=== PATIENT | female | born 1955 | race Caucasian/White ===

== ENCOUNTER → 2017-05-03 | Outpatient (CLI) | payer BC ==
[~2017-05-03] MED LIST: HYDR-757 PO; MONT10TA24; PROG100C6; TOLT4CAP13; thyroid med
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
== END ==
LOC: RAD 17:15
DX: R05 Cough (principal); R06.2 Wheezing
CPT/HCPCS: 71010

== ENCOUNTER 2017-08-10 14:35 | Emergency (ER) | payer OTHER, BC ==
[~2017-08-10] VITALS: Ht 170.2 cm; Wt 143.8 kg
[2017-08-10 15:33] LABS: BILIRUBIN,URINE NEGATIVE (NEGATIVE); CLARITY,URINE SLIGHTLY CLOUDY; COLOR,URINE YELLOW; GLUCOSE, URINE (UA) NEGATIVE (NEGATIVE); KETONES,URINE NEGATIVE (NEGATIVE); LEUKOCYTE ESTERASE ,URINE 3+ (NEGATIVE); NITRITE,URINE NEGATIVE (NEGATIVE); PH,URINE 5 (5-9); PROTEIN,URINE NEGATIVE (NEGATIVE); UROBILINOGEN,URINE NORMAL (NORMAL)
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
[2017-08-10 15:48] LABS: RBC,URINE RARE /HPF
[2017-08-10 15:49] LABS: BACTERIA,URINE LARGE /HPF; WBC,URINE >100 /HPF
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
[2017-08-10] MEDS ORDERED: CEPH-507 PO (16:08)
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
[2017-08-10 16:24] VITALS: BP 161/78
[2017-08-10] MEDS ORDERED: CYCL10TA9 PO (17:23)
[2017-08-10] MEDS ORDERED: HYDR-3812 PO (17:23)
== END 2017-08-10 16:24 | disposition home or self-care (01) ==
LOC: EDUNIT# 14:35 → ER 14:36
DX: S52.511A Displaced fracture of right radial styloid process, initial encounter for closed fracture (principal); M48.061 Spinal stenosis, lumbar region without neurogenic claudication; N39.0 Urinary tract infection, site not specified; E03.9 Hypothyroidism, unspecified; Z87.891 Personal history of nicotine dependence; V43.92XA Unspecified car occupant injured in collision with other type car in traffic accident, initial encounter
CPT/HCPCS: 72131; 72192; 73110; 81000; 87077; 87088; 87186

== ENCOUNTER → 2018-02-15 | Outpatient (CLI) | payer BC, OTHER ==
[~2018-02-15] MED LIST changes: +CEPH-507 PO; +CYCL10TA9 PO; +HYDR-3812 PO
--- NOTE | 2018-02-15 14:28 | Diagnostic Imaging Report ---
PROCEDURE: MRI left joint lower extremity without contrast. TECHNIQUE: Multiplanar, multisequence non contrast-enhanced MRI of the left lower extremity was accomplished. INDICATION: Left knee pain. No prior studies are available for comparison. Overall quality of the study is somewhat compromised due to patient large body habitus. There is a moderate-sized knee joint effusion. There is also a small Edwards's cyst. The marrow signal intensity is unremarkable. No bone contusion or geographic marrow lesion is detected. The ACL and PCL are intact. Medial and lateral collateral ligament complexes appear intact. There is some slight truncation of the posterior horn of the lateral meniscus, suspicious for a tear. No displaced fragment is seen. Medial meniscus does appear to be intact. Extensor mechanism is unremarkable. There is moderate amount of edema in the pre-patellar tendon subcutaneous tissues. There does appear to be some articular cartilage thinning of the knee compartments but no osteochondral lesion is identified. IMPRESSION: 1. Moderate knee joint effusion and small Edwards's cyst. No ligamentous tear is seen. There is some mild mild truncation of the posterior horn lateral meniscus, suspicious for a tear. No displaced meniscal fragment is detected. Dictated by: Dictated on workstation # [id number]
== END ==
LOC: RAD 08:09
PROVIDERS: ATTEND Nurse Practitioner
DX: M71.22 Synovial cyst of popliteal space [Baker], left knee (principal); M23.232 Derangement of other medial meniscus due to old tear or injury, left knee
CPT/HCPCS: 73721

== ENCOUNTER → 2018-06-27 | Outpatient (CLI) | payer BC ==
[2018-06-27 11:09] LABS: BASOPHILS % (AUTO) 0 % (0-10); EOSINOPHILS # (AUTO) 0.1 10^3/uL (0.0-0.3); EOSINOPHILS % (AUTO) 2 % (0-10); HEMATOCRIT 40 % (35-52); HEMOGLOBIN 13.1 G/DL (11.5-16.0); LYMPHOCYTES # (AUTO) 1.8 X 10^3 (1.0-4.0); LYMPHOCYTES % (AUTO) 24 % (12-44); MEAN CORPUSCULAR HEMOGLOBIN 27 PG (25-34); MEAN CORPUSCULAR HGB CONC 33 G/DL (32-36); MEAN CORPUSCULAR VOLUME 82 FL (80-99); MEAN PLATELET VOLUME 8.6 FL (7.4-10.4); MONOCYTES # (AUTO) 0.6 X 10^3 (0.0-1.0); MONOCYTES % (AUTO) 8 % (0-12); NEUTROPHILS # (AUTO) 4.9 X 10^3 (1.8-7.8); NEUTROPHILS % (AUTO) 66 % (42-75); PLATELET COUNT 284 10^3/uL (130-400); RED BLOOD COUNT 4.86 10^6/uL (4.35-5.85); WHITE BLOOD COUNT 7.4 10^3/uL (4.3-11.0)
[2018-06-27 11:32] LABS: ALANINE AMINOTRANSFERASE 20 U/L (0-55); ALBUMIN 4.2 GM/DL (3.2-4.5); ALKALINE PHOSPHATASE 86 U/L (40-136); BILIRUBIN,TOTAL 0.4 MG/DL (0.1-1.0); BUN/CREATININE RATIO 17; CALCIUM 9.7 MG/DL (8.5-10.1); CARBON DIOXIDE 27 MMOL/L (21-32); CHLORIDE 103 MMOL/L (98-107); CREATININE SERUM 0.82 MG/DL (0.60-1.30); GFR ESTIMATED > 60; GLUCOSE 125 MG/DL (70-105); POTASSIUM 4.3 MMOL/L (3.6-5.0); SODIUM 142 MMOL/L (135-145); TOTAL PROTEIN 7.2 GM/DL (6.4-8.2)
== END ==
LOC: LAB 10:49
PROVIDERS: ATTEND Surgery
DX: I70.243 Atherosclerosis of native arteries of left leg with ulceration of ankle (principal); L97.322 Non-pressure chronic ulcer of left ankle with fat layer exposed
CPT/HCPCS: 36415; 80053; 85025

== ENCOUNTER → 2018-06-27 | Outpatient (CLI) | payer BC | LOC: WOUNDCARE 08:23 | PROVIDERS: ATTEND Surgery | DX: I87.332 Chronic venous hypertension (idiopathic) with ulcer and inflammation of left lower extremity (principal); L97.322 Non-pressure chronic ulcer of left ankle with fat layer exposed; I82.402 Acute embolism and thrombosis of unspecified deep veins of left lower extremity; E66.01 Morbid (severe) obesity due to excess calories; Z68.43 Body mass index [BMI] 50.0-59.9, adult | CPT/HCPCS: 11042 ==

== ENCOUNTER → 2018-06-29 | Outpatient (CLI) | payer BC | LOC: WOUNDCARE 15:13 | PROVIDERS: ATTEND Surgery | DX: I87.332 Chronic venous hypertension (idiopathic) with ulcer and inflammation of left lower extremity (principal); L97.322 Non-pressure chronic ulcer of left ankle with fat layer exposed; I82.402 Acute embolism and thrombosis of unspecified deep veins of left lower extremity; E66.01 Morbid (severe) obesity due to excess calories; Z68.43 Body mass index [BMI] 50.0-59.9, adult | CPT/HCPCS: 29581 ==

== ENCOUNTER → 2018-07-04 | Outpatient (CLI) | payer BC | LOC: WOUNDCARE 08:12 | PROVIDERS: ATTEND Surgery | DX: I87.332 Chronic venous hypertension (idiopathic) with ulcer and inflammation of left lower extremity (principal); L97.322 Non-pressure chronic ulcer of left ankle with fat layer exposed; I82.402 Acute embolism and thrombosis of unspecified deep veins of left lower extremity; E66.01 Morbid (severe) obesity due to excess calories; Z68.43 Body mass index [BMI] 50.0-59.9, adult | CPT/HCPCS: 99213 ==

== ENCOUNTER → 2018-07-11 | Outpatient (CLI) | payer BC | LOC: WOUNDCARE 08:06 | PROVIDERS: ATTEND Surgery | DX: L97.322 Non-pressure chronic ulcer of left ankle with fat layer exposed (principal); I87.332 Chronic venous hypertension (idiopathic) with ulcer and inflammation of left lower extremity; I82.402 Acute embolism and thrombosis of unspecified deep veins of left lower extremity; E66.01 Morbid (severe) obesity due to excess calories; Z68.43 Body mass index [BMI] 50.0-59.9, adult | CPT/HCPCS: 11042; 87070; 87075; 87205 ==

== ENCOUNTER → 2018-07-18 | Outpatient (CLI) | payer BC | LOC: WOUNDCARE 08:13 | PROVIDERS: ATTEND Surgery | DX: I87.332 Chronic venous hypertension (idiopathic) with ulcer and inflammation of left lower extremity (principal); L97.322 Non-pressure chronic ulcer of left ankle with fat layer exposed; I82.402 Acute embolism and thrombosis of unspecified deep veins of left lower extremity; E66.01 Morbid (severe) obesity due to excess calories; Z68.43 Body mass index [BMI] 50.0-59.9, adult | CPT/HCPCS: 11042 ==

== ENCOUNTER → 2018-07-25 | Outpatient (CLI) | payer BC | LOC: WOUNDCARE 08:15 | PROVIDERS: ATTEND Surgery | DX: I87.332 Chronic venous hypertension (idiopathic) with ulcer and inflammation of left lower extremity (principal); L97.322 Non-pressure chronic ulcer of left ankle with fat layer exposed; E66.01 Morbid (severe) obesity due to excess calories; Z68.43 Body mass index [BMI] 50.0-59.9, adult | CPT/HCPCS: 11042 ==

== ENCOUNTER → 2018-08-01 | Outpatient (CLI) | payer BC | LOC: WOUNDCARE 08:08 | PROVIDERS: ATTEND Surgery | DX: I87.332 Chronic venous hypertension (idiopathic) with ulcer and inflammation of left lower extremity (principal); L97.322 Non-pressure chronic ulcer of left ankle with fat layer exposed; E66.01 Morbid (severe) obesity due to excess calories; Z68.43 Body mass index [BMI] 50.0-59.9, adult | CPT/HCPCS: 99212 ==

== ENCOUNTER 2018-10-20 17:12 | Emergency (ER) | payer BC ==
[~2018-10-20] VITALS: Ht 170.2 cm; Wt 147.9 kg
[2018-10-20 17:49] LABS: BASOPHILS % (AUTO) 0 % (0-10); EOSINOPHILS # (AUTO) 0.2 10^3/uL (0.0-0.3); EOSINOPHILS % (AUTO) 2 % (0-10); HEMATOCRIT 39 % (35-52); HEMOGLOBIN 12.7 G/DL (11.5-16.0); LYMPHOCYTES # (AUTO) 2.2 X 10^3 (1.0-4.0); LYMPHOCYTES % (AUTO) 33 % (12-44); MEAN CORPUSCULAR HEMOGLOBIN 27 PG (25-34); MEAN CORPUSCULAR HGB CONC 33 G/DL (32-36); MEAN CORPUSCULAR VOLUME 81 FL (80-99); MEAN PLATELET VOLUME 8.7 FL (7.4-10.4); MONOCYTES # (AUTO) 0.7 X 10^3 (0.0-1.0); MONOCYTES % (AUTO) 10 % (0-12); NEUTROPHILS # (AUTO) 3.7 X 10^3 (1.8-7.8); NEUTROPHILS % (AUTO) 55 % (42-75); PLATELET COUNT 262 10^3/uL (130-400); RED CELL DISTRIBUTION WIDTH 14.7 % (10.0-14.5); WHITE BLOOD COUNT 6.8 10^3/uL (4.3-11.0)
[2018-10-20 18:00] LABS: FIBRIN DEGRADATION PRODUCTS 0.61 UG/ML (0.00-0.49); PROTHROMBIN TIME PATIENT 13.2 SEC (12.2-14.7)
[2018-10-20 18:04] LABS: ALANINE AMINOTRANSFERASE 25 U/L (0-55); ALBUMIN 4.6 GM/DL (3.2-4.5); ALKALINE PHOSPHATASE 94 U/L (40-136); BILIRUBIN,TOTAL 0.6 MG/DL (0.1-1.0); BUN/CREATININE RATIO 14; CALCIUM 9.9 MG/DL (8.5-10.1); CARBON DIOXIDE 28 MMOL/L (21-32); CHLORIDE 102 MMOL/L (98-107); CREATININE SERUM 0.83 MG/DL (0.60-1.30); GFR ESTIMATED > 60; GLUCOSE 106 MG/DL (70-105); POTASSIUM 3.8 MMOL/L (3.6-5.0); SODIUM 141 MMOL/L (135-145); TOTAL PROTEIN 7.7 GM/DL (6.4-8.2)
--- NOTE | 2018-10-20 18:09 | ED Lower Extremity ---
General Chief Complaint: Lower Extremity Stated Complaint: PAIN IN L LEG Nursing Triage Note: LEFT LOWER LEG PAIN X2 DAYS. HISTORY OF DVT AND CELLULITUS Nursing Sepsis Screen: No Definite Risk Source: patient Exam Limitations: no limitations History of Present Illness Date Seen by Provider: October 20, 2018 Time Seen by Provider: 17:20 Initial Comments 62-year-old female who presents to the emergency room with complaints of left calf pain and redness for the past 2 days. 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 She is currently on blood thinners. Denies injury to the calf area. Pain/Injury Location: left leg (Calf area) Method of Injury: unknown Modifying Factors: Worse With Movement Allergies and Home Medications Allergies Coded Allergies: No Known Drug Allergies (Unverified , 08/24/14) Home Medications Cephalexin 500 Mg Capsule, 500 MG PO QID Prescribed by: YVAN KELLOGG on 08/10/17 1608 Cephalexin 500 Mg Capsule, 500 MG PO QID Prescribed by: CARYN MARIE on 10/20/18 1902 Cyclobenzaprine HCl 10 Mg Tablet, 10 MG PO TID PRN for SPASMS Prescribed by: YVAN KELLOGG on 08/10/17 1723 Hydrocodone Bit/Acetaminophen 1 Each Tablet, 1 EA PO Q6H PRN for MILD PAIN Prescribed by: SHANTANU WAYNE on 08/24/14 2228 Hydrocodone/Acetaminophen 1 Each Tablet, 1 EACH PO Q4H PRN for PAIN-MODERATE TO SEVERE Prescribed by: YVAN KELLOGG on 08/10/17 1723 Patient Home Medication List Home Medication List Reviewed: Yes Review of Systems Constitutional: see HPI; No chills, No fever Musculoskeletal: see HPI, other (Left calf pain) Skin: see HPI, other (Area of erythema to the left calf) All Other Systems Reviewed Negative Unless Noted: Yes Past Vnlmftl-Hitbhy-Rndvtj Hx Past Med/Social Hx: Reviewed Nursing Past Med/Soc Hx Patient Social History Alcohol Use: Denies Use Recreational Drug Use: No Type Used: Cigarettes Former Smoker, Quit: Jul 15, 1989 Recent Foreign Travel: No Contact w/Someone Who Travel: No Recent Infectious Disease Expo: No Recent Hopitalizations: No Seasonal Allergies Seasonal Allergies: Yes Past Medical History Surgeries: Yes (dental) Respiratory: No Cardiac: No Neurological: No 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 oz. 147.591541zd; 49.64 BMI Method:Stated General Appearance: WD/WN, no apparent distress Cardiovascular: normal peripheral pulses, regular rate, rhythm, no edema, no gallop, no JVD, no murmur Respiratory: chest non-tender, lungs clear, normal breath sounds, no respiratory distress, no accessory muscle use Legs: left leg pain (Left calf area) Neurologic/Psychiatric: alert, normal mood/affect, oriented x 3 Skin: normal color, warm/dry, other (Area of erythema to the left calf 4 cm in diameter. Warm to the touch. Tender on palpation.) Progress/Results/Core Measures Results/Orders Lab Results Laboratory Tests Test 10/20/18 17:39 Range/Units White Blood Count 6.8 4.3-11.0 10^3/uL Red Blood Count 4.79 4.35-5.85 10^6/uL Hemoglobin 12.7 11.5-16.0 G/DL Hematocrit 39 35-52 % Mean Corpuscular Volume 81 80-99 FL Mean Corpuscular Hemoglobin 27 25-34 PG Mean Corpuscular Hemoglobin Concent 33 32-36 G/DL Red Cell Distribution Width 14.7 H 10.0-14.5 % Platelet Count 262 130-400 10^3/uL Mean Platelet Volume 8.7 7.4-10.4 FL Neutrophils (%) (Auto) 55 42-75 % Lymphocytes (%) (Auto) 33 12-44 % Monocytes (%) (Auto) 10 0-12 % Eosinophils (%) (Auto) 2 0-10 % Basophils (%) (Auto) 0 0-10 % Neutrophils # (Auto) 3.7 1.8-7.8 X 10^3 Lymphocytes # (Auto) 2.2 1.0-4.0 X 10^3 Monocytes # (Auto) 0.7 0.0-1.0 X 10^3 Eosinophils # (Auto) 0.2 0.0-0.3 10^3/uL Basophils # (Auto) 0.0 0.0-0.1 10^3/uL Prothrombin Time 13.2 12.2-14.7 SEC INR Comment 1.0 0.8-1.4 Activated Partial Thromboplast Time 32 24-35 SEC D-Dimer 0.61 H 0.00-0.49 UG/ML Sodium Level 141 135-145 MMOL/L Potassium Level 3.8 3.6-5.0 MMOL/L Chloride Level 102 98-107 MMOL/L Carbon Dioxide Level 28 21-32 MMOL/L Anion Gap 11 5-14 MMOL/L Blood Urea Nitrogen 12 7-18 MG/DL Creatinine 0.83 0.60-1.30 MG/DL Estimat Glomerular Filtration Rate > 60 BUN/Creatinine Ratio 14 Glucose Level 106 H 70-105 MG/DL Calcium Level 9.9 8.5-10.1 MG/DL Corrected Calcium 8.5-10.1 MG/DL Total Bilirubin 0.6 0.1-1.0 MG/DL Aspartate Amino Transf (AST/SGOT) 18 5-34 U/L Alanine Aminotransferase (ALT/SGPT) 25 0-55 U/L Alkaline Phosphatase 94 40-136 U/L Total Protein 7.7 6.4-8.2 GM/DL Albumin 4.6 H 3.2-4.5 GM/DL My Orders Orders - CARYN MARIE Comprehensive Metabolic Panel (10/20/18 17:23) Cbc With Automated Diff (10/20/18 17:23) Protime With Inr (10/20/18 17:23) Partial Thromboplastin Time (10/20/18 17:23) Fibrin Degradation Products (10/20/18 17:23) Us Venous Lower Ext Lt (10/20/18 17:23) Monitor-Rhythm Ecg Trace Only (10/20/18 17:23) Vital Signs/I&O 10/20/18 10/20/18 17:17 19:05 Temp 97.8 97.8 Pulse 84 75 Resp 16 B/P (MAP) 168/88 (114) 181/71 (107) Pulse Ox 100 100 O2 Delivery Room Air Room Air Blood Pressure Mean: 114 Diagnostic Imaging Diagonstic Imaging: Ultrasound Plain Films/CT/US/NM/MRI: leg Comments NAME: ELIZABETH APARICIO [facility] REC#: [id number] PT STATUS: DEP ER : 1955 PHYSICIAN: CARYN MARIE ADMIT DATE: 10/20/18/ER Signed Date of Exam: 10/20/18 US VENOUS LOWER EXT LT PROCEDURE: US left lower extremity venous. TECHNIQUE: Multiple real-time grayscale images were obtained over the left lower extremity in various projections. Additional duplex Doppler and color Doppler images were also obtained. INDICATION: Pain and swelling COMPARISON: 06/17/2018 FINDINGS: Normal flow, compression, and augmentation within the visualized deep venous structures of the left lower extremity. IMPRESSION: No evidence of deep venous thrombosis within the left lower extremity. Dictated by: Dictated on workstation # [id number] Dict: 10/20/181839 Trans: 10/20/181924 Interpreted by: BRANNON DE LOS SANTOS MD Electronically signed by: BRANNON DE LOS SANTOS MD 10/20/181924 Reviewed: Reviewed by Me Departure Impression Primary Impression: Cellulitis Disposition: 01 HOME, SELF-CARE Condition: Stable/Unchanged Departure-Patient Inst. Decision time for Depature: 19:01 Referrals: ARLET GARY MD (PCP/Family) Primary Care Physician Patient Instructions: Cellulitis (Skin Infection), Adult (DC) Add. Discharge Instructions: Take medications as directed. Follow-up with Dr. Gary within 1 week for recheck. Return back to the emergency room for worsening symptoms turns as needed. All discharge instructions reviewed with patient and/or family. Voiced understanding. Scripts Cephalexin (Keflex) 500 Mg Capsule 500 MG PO QID for 7 Days, #28 CAP Prov: CARYN MARIE 10/20/18 CARYN MARIE October 20, 2018 18:09
--- NOTE | 2018-10-20 18:51 | Diagnostic Imaging Report ---
PROCEDURE: US left lower extremity venous. TECHNIQUE: Multiple real-time grayscale images were obtained over the left lower extremity in various projections. Additional duplex Doppler and color Doppler images were also obtained. INDICATION: Pain and swelling COMPARISON: 06/17/2018 FINDINGS: Normal flow, compression, and augmentation within the visualized deep venous structures of the left lower extremity. IMPRESSION: No evidence of deep venous thrombosis within the left lower extremity. Dictated by: Dictated on workstation # [id number]
--- NOTE | 2018-10-20 18:56 | NUR ---
Report given to Bryon
[2018-10-20] MEDS ORDERED: CEPH-507 PO (19:02)
[2018-10-20 19:05] VITALS: BP 181/71
== END 2018-10-20 19:07 | disposition home or self-care (01) ==
LOC: EDUNIT# 17:12 → ER 17:13
DX: L03.116 Cellulitis of left lower limb (principal); E03.9 Hypothyroidism, unspecified; Z86.718 Personal history of other venous thrombosis and embolism; Z87.891 Personal history of nicotine dependence
CPT/HCPCS: 36415; 80053; 85025; 85379; 85610; 85730; 93041

== ENCOUNTER 2019-01-27 13:01 | Outpatient (CLI) | payer BC ==
[~2019-01-27] VITALS: Ht 170.2 cm; Wt 152.4 kg
[2019-01-27] MEDS ORDERED: TOLT4CAP13 PO (13:19)
[2019-01-27] MEDS ORDERED: LEVO100T7 PO (13:19)
[2019-01-27] MEDS ORDERED: MONT10TA24 PO (13:19)
[2019-01-27] MEDS ORDERED: CETI10TA20 PO (13:19)
[2019-01-27] MEDS ORDERED: CHOL500044 PO (13:19)
[2019-01-27] MEDS ORDERED: PROG100C11 PO (13:19)
== END 2019-01-27 13:20 | disposition home or self-care (01) ==
LOC: PREOP 13:01
PROVIDERS: ATTEND Surgery
DX: Z01.818 Encounter for other preprocedural examination (principal); K62.5 Hemorrhage of anus and rectum

== ENCOUNTER 2019-01-31 13:24 | Day surgery (SDC) | payer BC ==
[2019-01-31] VITALS (8 sets, daily range): BP systolic 122–176; BP diastolic 73–81
[~2019-01-31] VITALS: Ht 170.2 cm; Wt 152.4 kg
[~2019-01-31 13:24] MED LIST changes: +CETI10TA20 PO; +CHOL500044 PO; +LACTATED RINGERS 1,000 ML IV ONE; +LEVO100T7 PO; +MONT10TA24 PO; +PROG100C11 PO; +TOLT4CAP13 PO
[2019-01-31] MEDS ORDERED: LACTATED RINGERS 1,000 ML IV STA (13:31)
[2019-01-31] MEDS ORDERED: proPOfol 200 MG/20 ML (DIPRIVAN) VIAL IV ONE ×3 (13:36→14:32)
[2019-01-31] MEDS ORDERED: MIDAZOLAM 2 MG/2 ML (VERSED) VIAL ONE (13:36)
[2019-01-31] MEDS ORDERED: LIDOCAINE PF 2% 5 ML (XYLOCAINE) VIAL ONE (13:36)
--- NOTE | 2019-01-31 13:49 | Progress Note-Pre Operative ---
Pre-Operative Progress Note H&P Reviewed The H&P was reviewed, patient examined and no changes noted. Date Seen by Provider: Jan 31, 2019 Time Seen by Provider: 13:48 Date H&P Reviewed: Jan 31, 2019 Time H&P Reviewed: 13:48 Pre-Operative Diagnosis: bright red blood per rectum ALEX HOBBS DO Jan 31, 2019 13:49
--- NOTE | 2019-01-31 14:46 | Progress Note-Post Operative ---
Post-Operative Progess Note Surgeon (s)/Domestic Housekeeper (s) Surgeon ALEX HOBBS DO Domestic Housekeeper: na Pre-Operative Diagnosis bright red blood per rectum Post-Operative Diagnosis colon polyps Procedure & Operative Findings Date of Procedure 01/31/19 Procedure Performed/Findings colonoscopy c snare polypectomy x 4 Anesthesia Type per mda Estimated Blood Loss Estimated blood loss (mL): none Specimens/Packing Specimens Removed colon polyps ALEX HOBBS DO Jan 31, 2019 14:46
--- NOTE | 2019-01-31 14:47 | Discharge Inst-Simple/Standard ---
Discharge Inst-Standard Patient Instructions/Follow Up Plan of Care/Instructions/FU: 2-3 weeks Anay Activity as Tolerated: Yes Discharge Diet: Regular Diet ALEX HOBBS DO Jan 31, 2019 14:47
--- NOTE | 2019-01-31 15:01 | Anesthesia-General Post-Op ---
MAC Patient Condition Mental Status/LOC: Same as Preop Cardiovascular: Satisfactory Nausea/Vomiting: Absent Respiratory: Satisfactory Pain: Controlled Complications: Absent Post Op Complications Complications None Follow Up Care/Instructions Patient Instructions None needed. Anesthesiology Discharge Order Discharge Order Patient is doing well, no complaints, stable vital signs, no apparent adverse anesthesia problems. ANA MARIA LINDSEY DO Jan 31, 2019 15:01
--- NOTE | 2019-01-31 19:14 | OPERATIVE REPORT ---
DATE OF SERVICE: 01/31/2019 PREOPERATIVE DIAGNOSIS: Bright red blood per rectum. POSTOPERATIVE DIAGNOSIS: Colon polyps. PROCEDURE PERFORMED: Colonoscopy with snare polypectomy x4. SURGEON: Alex Cueva DO ANESTHESIA: Per MDA. ESTIMATED BLOOD LOSS: None. COMPLICATIONS: None. INDICATIONS: The patient is a 63-year-old female who has been having some bright red bleeding per rectum. She is due for colonoscopy. She understands risks and benefits and wished to proceed with procedure. Consent was signed in the chart. DESCRIPTION OF PROCEDURE: The patient was taken to the endoscopy suite, placed in left lateral recumbent position. Timeout was performed. Digital rectal exam was performed. Feels like healing anal fissure. No other palpable polyps, mass or ulcerations. The scope was inserted in the rectum, advanced all the way to the cecum with minimal difficulty. Prep was adequate. Scope was then slowly retracted back. There were no polyps, masses or ulcerations within the cecum. Ascending colon had no polyps, masses or ulcerations. In the hepatic flexure, there were two larger polyps, which snare polypectomy was performed. One was able to be suctioned out and had to be withdrawn the entire way. The scope was then reinserted in the rectum, advanced all the way back up to the hepatic flexure and then slowly withdrawn. There were no polyps, masses or ulcerations in the transverse colon. In the descending colon, there were 2 small polyps, which snare polypectomies were performed. Scope was continued to be slowly retracted back. No polyps, masses or ulcerations in the sigmoid colon. In the rectum, the scope was retroflexed noting no other pathology. Scope was returned to its normal position, slowly withdrawn until completely removed. The patient tolerated procedure well without any complications. She was taken to recovery room in stable condition. RECOMMENDATIONS: Would be to repeat colonoscopy in one year for reevaluation. If she has any problems prior to that, she should be reevaluated at that time. The patient will follow up in 2 weeks to discuss pathology results. Job ID: [id number] DocumentID: [id number] Dictated Date: 01/31/2019 14:50:00 Assistant Customer Service Manager Date: 01/31/2019 19:13:45 Dictated By: ALEX CUEVA DO
== END 2019-01-31 15:40 | disposition home or self-care (01) ==
LOC: ENDO 13:24
PROVIDERS: ATTEND Surgery
DX: D12.4 Benign neoplasm of descending colon (principal); D12.3 Benign neoplasm of transverse colon; K62.5 Hemorrhage of anus and rectum; K58.9 Irritable bowel syndrome, unspecified; E66.01 Morbid (severe) obesity due to excess calories; Z68.43 Body mass index [BMI] 50.0-59.9, adult; Z87.891 Personal history of nicotine dependence; Z83.6 Family history of other diseases of the respiratory system; Z84.1 Family history of disorders of kidney and ureter; Z83.49 Family history of other endocrine, nutritional and metabolic diseases; Z82.49 Family history of ischemic heart disease and other diseases of the circulatory system; Z80.9 Family history of malignant neoplasm, unspecified; Z82.3 Family history of stroke

== ENCOUNTER → 2020-04-11 | Outpatient (CLI) | payer BC ==
[~2020-04-11] MED LIST changes: +ACHD5005 PO; -CETI10TA20 PO; +CETI10TA49 PO; -HYDR-3812 PO; -LACTATED RINGERS 1,000 ML IV ONE; -MONT10TA24 PO; +MONT10TA26 PO
== END ==
LOC: LABNPT 05:45
PROVIDERS: ATTEND Family Medicine
DX: R50.81 Fever presenting with conditions classified elsewhere (principal); Z20.828 Contact with and (suspected) exposure to other viral communicable diseases
CPT/HCPCS: 87635

== ENCOUNTER → 2020-07-30 | Outpatient (CLI) | payer BC ==
[~2020-07-30] MED LIST changes: -MONT10TA26 PO; +MONT10TA32 PO
== END ==
LOC: LABNPT 08:44
PROVIDERS: ATTEND Family Medicine
DX: R50.9 Fever, unspecified (principal); Z20.822 Contact with and (suspected) exposure to COVID-19
CPT/HCPCS: 87635

== ENCOUNTER 2020-10-02 14:43 | Outpatient (RCR) | payer BC | END 2020-10-03 09:35 | disposition home or self-care (01) | PROVIDERS: ATTEND Phlebology | DX: I89.0 Lymphedema, not elsewhere classified (principal); L03.90 Cellulitis, unspecified; E03.9 Hypothyroidism, unspecified; Z86.718 Personal history of other venous thrombosis and embolism ==

== ENCOUNTER → 2021-01-10 | Outpatient (CLI) | payer BC ==
[~2021-01-10] MED LIST changes: -TOLT4CAP13 PO; +TOLT4CAP26 PO
== END ==
LOC: LABNPT 08:56
PROVIDERS: ATTEND Family Medicine
DX: Z20.822 Contact with and (suspected) exposure to COVID-19 (principal)
CPT/HCPCS: 87635

== ENCOUNTER → 2021-05-14 | Outpatient (CLI) | payer BC ==
[~2021-05-14] MED LIST changes: +CYCL10TA25 PO; -CYCL10TA9 PO; +MONT-40 PO; -MONT10TA32 PO
== END ==
LOC: WOUNDCARE 08:51
PROVIDERS: ATTEND Family Medicine
DX: I87.333 Chronic venous hypertension (idiopathic) with ulcer and inflammation of bilateral lower extremity (principal); L97.522 Non-pressure chronic ulcer of other part of left foot with fat layer exposed; L97.512 Non-pressure chronic ulcer of other part of right foot with fat layer exposed; L03.115 Cellulitis of right lower limb; L03.116 Cellulitis of left lower limb; I89.0 Lymphedema, not elsewhere classified; I96 Gangrene, not elsewhere classified; Z86.718 Personal history of other venous thrombosis and embolism
CPT/HCPCS: A6197; G0463; 99214

== ENCOUNTER → 2021-05-21 | Outpatient (CLI) | payer BC | LOC: WOUNDCARE 10:10 | PROVIDERS: ATTEND Family Medicine | DX: I87.333 Chronic venous hypertension (idiopathic) with ulcer and inflammation of bilateral lower extremity (principal); L97.522 Non-pressure chronic ulcer of other part of left foot with fat layer exposed; L97.512 Non-pressure chronic ulcer of other part of right foot with fat layer exposed; L03.115 Cellulitis of right lower limb; L03.116 Cellulitis of left lower limb; I89.0 Lymphedema, not elsewhere classified; I96 Gangrene, not elsewhere classified; Z86.718 Personal history of other venous thrombosis and embolism | CPT/HCPCS: 11042; G0463 ==

== ENCOUNTER → 2021-05-27 | Outpatient (CLI) | payer BC | LOC: WOUNDCARE 14:56 | PROVIDERS: ATTEND Family Medicine | DX: I87.333 Chronic venous hypertension (idiopathic) with ulcer and inflammation of bilateral lower extremity (principal); L97.512 Non-pressure chronic ulcer of other part of right foot with fat layer exposed; L97.522 Non-pressure chronic ulcer of other part of left foot with fat layer exposed; L03.116 Cellulitis of left lower limb; L03.115 Cellulitis of right lower limb; I89.0 Lymphedema, not elsewhere classified; G90.09 Other idiopathic peripheral autonomic neuropathy; I96 Gangrene, not elsewhere classified | CPT/HCPCS: 11042; A6197; G0463 ==

== ENCOUNTER → 2021-06-03 | Outpatient (CLI) | payer BC | LOC: WOUNDCARE 13:51 | PROVIDERS: ATTEND Family Medicine | DX: I87.333 Chronic venous hypertension (idiopathic) with ulcer and inflammation of bilateral lower extremity (principal); I96 Gangrene, not elsewhere classified; L97.512 Non-pressure chronic ulcer of other part of right foot with fat layer exposed; L97.522 Non-pressure chronic ulcer of other part of left foot with fat layer exposed; L03.116 Cellulitis of left lower limb; L03.115 Cellulitis of right lower limb; I89.0 Lymphedema, not elsewhere classified; G90.09 Other idiopathic peripheral autonomic neuropathy; Z86.718 Personal history of other venous thrombosis and embolism | CPT/HCPCS: 11042; G0463 ==

== ENCOUNTER → 2021-06-10 | Outpatient (CLI) | payer BC | LOC: WOUNDCARE 13:38 | PROVIDERS: ATTEND Family Medicine | DX: I87.333 Chronic venous hypertension (idiopathic) with ulcer and inflammation of bilateral lower extremity (principal); L97.522 Non-pressure chronic ulcer of other part of left foot with fat layer exposed; L97.512 Non-pressure chronic ulcer of other part of right foot with fat layer exposed; I89.0 Lymphedema, not elsewhere classified; G90.09 Other idiopathic peripheral autonomic neuropathy; I96 Gangrene, not elsewhere classified; Z86.718 Personal history of other venous thrombosis and embolism | CPT/HCPCS: 11042; G0463 ==

== ENCOUNTER → 2021-06-17 | Outpatient (CLI) | payer BC | LOC: WOUNDCARE 13:50 | PROVIDERS: ATTEND Family Medicine | DX: I87.332 Chronic venous hypertension (idiopathic) with ulcer and inflammation of left lower extremity (principal); L97.512 Non-pressure chronic ulcer of other part of right foot with fat layer exposed; L97.522 Non-pressure chronic ulcer of other part of left foot with fat layer exposed; I96 Gangrene, not elsewhere classified; I89.0 Lymphedema, not elsewhere classified; G90.09 Other idiopathic peripheral autonomic neuropathy; Z86.718 Personal history of other venous thrombosis and embolism | CPT/HCPCS: 11042; G0463 ==

== ENCOUNTER → 2021-06-24 | Outpatient (CLI) | payer BC | LOC: WOUNDCARE 13:48 | PROVIDERS: ATTEND Family Medicine | DX: I87.333 Chronic venous hypertension (idiopathic) with ulcer and inflammation of bilateral lower extremity (principal); L97.522 Non-pressure chronic ulcer of other part of left foot with fat layer exposed; L97.512 Non-pressure chronic ulcer of other part of right foot with fat layer exposed; I89.0 Lymphedema, not elsewhere classified; G90.09 Other idiopathic peripheral autonomic neuropathy; I96 Gangrene, not elsewhere classified; Z86.718 Personal history of other venous thrombosis and embolism | CPT/HCPCS: 11042; G0463 ==

== ENCOUNTER → 2021-07-01 | Outpatient (CLI) | payer BC | LOC: WOUNDCARE 13:40 | PROVIDERS: ATTEND Family Medicine | DX: I87.333 Chronic venous hypertension (idiopathic) with ulcer and inflammation of bilateral lower extremity (principal); L97.512 Non-pressure chronic ulcer of other part of right foot with fat layer exposed; L97.522 Non-pressure chronic ulcer of other part of left foot with fat layer exposed; I89.0 Lymphedema, not elsewhere classified; G90.09 Other idiopathic peripheral autonomic neuropathy; I96 Gangrene, not elsewhere classified | CPT/HCPCS: 11042; G0463 ==

== ENCOUNTER → 2021-07-03 | Outpatient (CLI) | payer BC | LOC: WOUNDCARE 13:38 | PROVIDERS: ATTEND Family Medicine | DX: I87.333 Chronic venous hypertension (idiopathic) with ulcer and inflammation of bilateral lower extremity (principal); I89.0 Lymphedema, not elsewhere classified | CPT/HCPCS: 29581; A6021; G0463 ==

== ENCOUNTER → 2021-07-04 | Outpatient (CLI) | payer BC | LOC: WOUNDCARE 11:04 | PROVIDERS: ATTEND Family Medicine | DX: I87.333 Chronic venous hypertension (idiopathic) with ulcer and inflammation of bilateral lower extremity (principal); I89.0 Lymphedema, not elsewhere classified; I96 Gangrene, not elsewhere classified | CPT/HCPCS: 29581; G0463 ==

== ENCOUNTER → 2021-07-08 | Outpatient (CLI) | payer BC | LOC: WOUNDCARE 13:56 | PROVIDERS: ATTEND Family Medicine | DX: I87.333 Chronic venous hypertension (idiopathic) with ulcer and inflammation of bilateral lower extremity (principal); L97.522 Non-pressure chronic ulcer of other part of left foot with fat layer exposed; L97.512 Non-pressure chronic ulcer of other part of right foot with fat layer exposed; I89.0 Lymphedema, not elsewhere classified; G90.09 Other idiopathic peripheral autonomic neuropathy; L03.115 Cellulitis of right lower limb; L03.116 Cellulitis of left lower limb; I96 Gangrene, not elsewhere classified; Z86.718 Personal history of other venous thrombosis and embolism | CPT/HCPCS: 11042; A6021; G0463 ==

== ENCOUNTER → 2021-07-10 | Outpatient (CLI) | payer BC | LOC: WOUNDCARE 13:09 | PROVIDERS: ATTEND Family Medicine | DX: I87.333 Chronic venous hypertension (idiopathic) with ulcer and inflammation of bilateral lower extremity (principal); I89.0 Lymphedema, not elsewhere classified; I96 Gangrene, not elsewhere classified | CPT/HCPCS: 29581; G0463 ==

== ENCOUNTER → 2021-07-15 | Outpatient (CLI) | payer BC | LOC: WOUNDCARE 13:52 | PROVIDERS: ATTEND Family Medicine | DX: I87.333 Chronic venous hypertension (idiopathic) with ulcer and inflammation of bilateral lower extremity (principal); L97.522 Non-pressure chronic ulcer of other part of left foot with fat layer exposed; L97.512 Non-pressure chronic ulcer of other part of right foot with fat layer exposed; I89.0 Lymphedema, not elsewhere classified; G90.09 Other idiopathic peripheral autonomic neuropathy; I96 Gangrene, not elsewhere classified; Z86.718 Personal history of other venous thrombosis and embolism | CPT/HCPCS: 11042; G0463 ==

== ENCOUNTER → 2021-07-22 | Outpatient (CLI) | payer BC | LOC: WOUNDCARE 13:49 | PROVIDERS: ATTEND Family Medicine | DX: I87.333 Chronic venous hypertension (idiopathic) with ulcer and inflammation of bilateral lower extremity (principal); L97.512 Non-pressure chronic ulcer of other part of right foot with fat layer exposed; L97.522 Non-pressure chronic ulcer of other part of left foot with fat layer exposed; I89.0 Lymphedema, not elsewhere classified; G90.09 Other idiopathic peripheral autonomic neuropathy; Z86.718 Personal history of other venous thrombosis and embolism | CPT/HCPCS: 11042; G0463 ==

== ENCOUNTER → 2021-07-29 | Outpatient (CLI) | payer BC | LOC: WOUNDCARE 13:40 | PROVIDERS: ATTEND Family Medicine | DX: I87.333 Chronic venous hypertension (idiopathic) with ulcer and inflammation of bilateral lower extremity (principal); L97.522 Non-pressure chronic ulcer of other part of left foot with fat layer exposed; L97.512 Non-pressure chronic ulcer of other part of right foot with fat layer exposed; I89.0 Lymphedema, not elsewhere classified; G90.09 Other idiopathic peripheral autonomic neuropathy; I96 Gangrene, not elsewhere classified; Z86.718 Personal history of other venous thrombosis and embolism | CPT/HCPCS: 99214 ==

== ENCOUNTER → 2021-08-05 | Outpatient (CLI) | payer BC | LOC: WOUNDCARE 13:44 | PROVIDERS: ATTEND Family Medicine | DX: I96 Gangrene, not elsewhere classified (principal); I87.333 Chronic venous hypertension (idiopathic) with ulcer and inflammation of bilateral lower extremity; L97.522 Non-pressure chronic ulcer of other part of left foot with fat layer exposed; L97.512 Non-pressure chronic ulcer of other part of right foot with fat layer exposed; I89.0 Lymphedema, not elsewhere classified; Z86.718 Personal history of other venous thrombosis and embolism; G90.09 Other idiopathic peripheral autonomic neuropathy | CPT/HCPCS: 99213 ==

== ENCOUNTER → 2021-08-12 | Outpatient (CLI) | payer BC | LOC: WOUNDCARE 13:53 | PROVIDERS: ATTEND Family Medicine | DX: I87.333 Chronic venous hypertension (idiopathic) with ulcer and inflammation of bilateral lower extremity (principal); L97.522 Non-pressure chronic ulcer of other part of left foot with fat layer exposed; L97.512 Non-pressure chronic ulcer of other part of right foot with fat layer exposed; I89.0 Lymphedema, not elsewhere classified; G90.09 Other idiopathic peripheral autonomic neuropathy; I96 Gangrene, not elsewhere classified; Z86.718 Personal history of other venous thrombosis and embolism | CPT/HCPCS: 11042; G0463 ==

== ENCOUNTER → 2021-08-19 | Outpatient (CLI) | payer BC | LOC: WOUNDCARE 13:14 | PROVIDERS: ATTEND Family Medicine | DX: I87.333 Chronic venous hypertension (idiopathic) with ulcer and inflammation of bilateral lower extremity (principal); L97.512 Non-pressure chronic ulcer of other part of right foot with fat layer exposed; I89.0 Lymphedema, not elsewhere classified; G90.09 Other idiopathic peripheral autonomic neuropathy; I96 Gangrene, not elsewhere classified; Z86.718 Personal history of other venous thrombosis and embolism | CPT/HCPCS: 11042; G0463 ==

== ENCOUNTER → 2021-08-26 | Outpatient (CLI) | payer BC | LOC: WOUNDCARE 13:38 | PROVIDERS: ATTEND Family Medicine | DX: I87.333 Chronic venous hypertension (idiopathic) with ulcer and inflammation of bilateral lower extremity (principal); L97.512 Non-pressure chronic ulcer of other part of right foot with fat layer exposed; I89.0 Lymphedema, not elsewhere classified; G90.09 Other idiopathic peripheral autonomic neuropathy; I96 Gangrene, not elsewhere classified; Z86.718 Personal history of other venous thrombosis and embolism | CPT/HCPCS: 99212 ==

== ENCOUNTER → 2021-09-09 | Outpatient (CLI) | payer BC | LOC: WOUNDCARE 13:38 | PROVIDERS: ATTEND Family Medicine | DX: I87.333 Chronic venous hypertension (idiopathic) with ulcer and inflammation of bilateral lower extremity (principal); L97.512 Non-pressure chronic ulcer of other part of right foot with fat layer exposed; I89.0 Lymphedema, not elsewhere classified; G90.09 Other idiopathic peripheral autonomic neuropathy; Z86.718 Personal history of other venous thrombosis and embolism | CPT/HCPCS: 99212 ==

== ENCOUNTER → 2023-04-23 | Outpatient (CLI) | payer OTHER ==
--- NOTE | 2023-04-25 18:54 | Diagnostic Imaging Report ---
INDICATION: Screening. EXAMINATION: 3D bilateral screening mammogram with CAD. The current study was also evaluated with a Computer Aided Detection (CAD) system. COMPARISON: There are no prior studies available for comparison. FINDINGS: At this time there are no current complaints. There are scattered areas of fibroglandular density. There is no primary or secondary sign of malignancy noted. IMPRESSION: 1. There is no evidence for malignancy. 2. The patient should have her annual bilateral screening mammogram on schedule in April 2024. ACR BI-RADS Category 1: Negative. Result letter will be mailed to the patient. Note: At least 10% of breast cancer is not imaged by mammography. Dictated by: Dictated on workstation # [id number]
== END ==
LOC: CARD 11:59
PROVIDERS: ATTEND Nurse Practitioner Family
DX: Z12.31 Encounter for screening mammogram for malignant neoplasm of breast (principal); I35.0 Nonrheumatic aortic (valve) stenosis; I51.7 Cardiomegaly
CPT/HCPCS: 77063; 77067